=== PATIENT | female | born 2000 | race Caucasian/White ===

== ENCOUNTER 2021-08-17 13:02 | Emergency (ER) | payer OTHER, SELFPAY ==
[2021-08-17 13:02] VITALS: BP 161/95; PULSE 88; RESP 16; TEMP 36.8; O2SAT 99; BMI 25.4
--- NOTE | 2021-08-17 13:35 | RAD_ITS ---
STUDY: X-RAY CHEST REASON FOR EXAM: Female, 20 years old. CHEST PAIN cp TECHNIQUE: XR Chest 1 View COMPARISON: None FINDINGS: There is no demonstrated pleural abnormality. Normal size heart. Normal mediastinum and usama. Normal visualized pulmonary arteries. Normal visualized aortic arch and descending thoracic aorta. Normal visualized thoracic spine. Normal visualized ribs, clavicles, and shoulders. There is no demonstrated abnormality of the visualized soft tissue structures of the upper abdomen. RAD/Chest 1 View (Portable) IMPRESSION: There are no acute findings. Electronically Signed: Gonsalo Gates MD at 14:13 EST ,
--- NOTE | 2021-08-17 13:35 | EKG12_ITS ---
Test Reason : CP Blood Pressure : / mmHG Vent. Rate : 084 BPM Atrial Rate : 084 BPM P-R Int : 158 ms QRS Dur : 102 ms QT Int : 356 ms P-R-T Axes : 029 063 005 degrees QTc Int : 420 ms Normal sinus rhythm Nonspecific T wave abnormality Abnormal ECG No previous ECGs available Confirmed by BHARTI REYNOLDS, CARMEN ([id number]), editor in chief newspaper JARET JOSEPH ([id number]) on 08/22/2021 1:15:42 PM Referred By: JORDAN Confirmed By:CARMEN HAY MD
[2021-08-17 13:39] VITALS: BP 149/74; PULSE 86; RESP 13
--- NOTE | 2021-08-17 13:48 | ED.VIS.CHEST ---
HPI History of Present Illness Chief Complaint: Chest Pain Informant: patient Onset/Context/Timing Onset: Today, Yesterday and Hours Timing: Continuous Quality: Positive for Aching and Dull Location: Left Parasternal and Left Chest Current Severity: Mild Maximum Severity: Mild Worsened By: Movement of Arm and Movement of Torso; Not Worsened By Exertion, Breathing and Coughing Relieved By: Remaining Still Associated Symptoms: Negative for Nausea, Vomiting, Diaphoresis, Dyspnea, Cough, Fever, Lightheadedness, Acid Reflux and Palpitations Narrative Narrative: 20-year-old female no severe past medical or surgical history. Complaining of left-sided chest discomfort. States it started on left shoulder and moved to her left chest. This began last night has been constant. Worse with movement. She has no history of cardiac disease. No history of DVT or PE. No risk factors for DVT or PE she was on control but stopped that about 3 weeks ago. Denies any leg swelling. She runs track and has not had exertional chest pain or dyspnea out of the ordinary. She has no history of pneumothorax or chest trauma. Prior Similar Symptoms: Yes Recent Illness/Hospitalization: No CVD Risk Factors: Negative for Hypertension, Diabetes, Hypercholesterolemia, Family History 1' </=55 and Smoking PE Risk Factors: Negative for Recent Travel/Surgery, Recent Immobilization, Prior DVT or PE, Cancer and OCP + Smoking + >/=35 TAD Risk Factors: Negative for Marfan's Syndrome PFSH PFSH Allergy/AdvReac Type Severity Reaction Status Date / Time No Known Allergies Allergy Verified 08/17/21 13:04 Surgical History no surgical history no surgical history Social History Smoking Status: Never smoker ROS ROS ED ROS Narrative Left chest pain. Review of Systems ROS Unobtainable: Denies due to encephalopathy Constitutional Constitutional ED: Denies fever(s) or subjective Eyes Eyes: Denies none ENT ENT ED: Denies ear pain Cardiovascular Cardiovascular: Reports as per HPI and chest pain; Denies palpitations or racing heartbeat Respiratory/Chest Respiratory/Chest: Denies cough or dyspnea Gastrointestinal Gastrointestinal: Denies abdominal pain Genitourinary Genitourinary ED: Denies dysuria Musculoskeletal Musculoskeletal: Denies myalgias Integumentary Denies rash Neurologic Neurologic: Denies headache(s) Psychiatric Psychiatric: Denies depression Endocrine Endocrinology: Denies polyuria Hematologic/Lymphatic Hematologic/Lymphatic: Denies easy bruising Allergic/Immunologic Allergic/Immunologic ED: Denies urticaria EXAM Physical Exam Narrative Exam Narrative: 20-year-old female no acute distress vital signs stable afebrile. Pulse ox 9 9% on room air no signs of hypoxia. H EENT exam normal. Neck nontender. No JVD. No lymphadenopathy. Lungs clear to auscultation bilaterally. Heart regular rate and rhythm rate about 85 no murmur. Chest wall reproducibly tender along the left sternum and left chest. No ecchymosis or bruising. No subcu air crepitus. No redness or warmth. Right chest nontender. Back nontender. Moving all 4 extremities. Equal symmetrical radial pulses. 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 Dorsi plantarflexion intact. Calves nontender without edema. No cords. Neurologically awake and alert. Reproducible left chest wall pain. Also exacerbation of pain with rotation of the trunk or pushing against my arms. Const Vital Signs: 08/17/21 13:02 08/17/21 13:36 08/17/21 13:39 Temperature 98.2 F Temperature Source Temporal Pulse Rate 88 86 Respiratory Rate 16 13 Respiratory Effort Normal Blood Pressure 161/95 H 149/74 H Blood Pressure Mean 117 99 Pulse Ox 99 Oxygen Delivery Method Room Air Positive well nourished and well developed; Negative for obese, cachectic, contractures or unkempt General Appearance ED: well developed and NAD; Negative for unkempt, cachectic, contractures or pallor Nutritional Appearance: Negative for cachectic or obese HEENT Reports moist mucous membranes normocephalic and atraumatic; Negative for trauma or tenderness Eyes PERRL and EOMs intact bilaterally Neck no lymphadenopathy, supple and no JVD General: Negative for tenderness Chest Wall inspection of chest normal; Negative for palpation of chest normal Chest: tenderness Resp normal respiratory effort and clear to auscultation bilaterally Effort and Inspection: respiratory distress Auscultation: Negative for rales, rhonchi or wheezes Cardio regular rate, regular rhythm, S1 normal heart sound, S2 normal heart sound and no murmurs Rate: Negative for tachycardic Peripheral Pulses: pulses 2+ throughout GI normal to inspection, nondistended, normoactive bowel sounds, soft to palpation, non-tender, non-distended and no masses Back/Spine no CVA tenderness and no thoracic nor lumbar tenderness General Back: Negative for CVA tenderness Cervical Spine: Negative for cervical spine tenderness Extremity normal to inspection General Extremety ED: Negative for edema, pulses abnormal or tenderness General Extremity: Negative for edema or pulses abnormal Neuro oriented x3 Sensorium / Orientation: awake, alert, oriented to person, oriented to place and oriented to time Motor Exam: strength 5/5 throughout Psych mental status grossly normal Appearance: Negative for unkempt Attitude: No agitated Mood & Affect: Negative for depressed or tearful Skin no rashes or lesions noted and no wounds General Skin Exam: Negative for jaundice or pallor Heart Score History: Slightly/Non-Suspicious ECG: Normal Age: </= 45 years Risk Factors: No Risk Factors Troponin: </= Normal Limit Score: 0 MDM MDM MDM Narrative Medical decision making narrative: Healthy 20-year-old female with reproducible chest wall pain that is consistent with costochondritis. Chest x-ray and EKG being obtained. X-rays are unremarkable she will be discharged home ice to the area. Motrin for pain. Repeat exam patient is doing well at 2:14 PM will be discharged home. Radiography Chest X-Ray - ED: 1 View, Read by ED Physician, Heart, Lungs, Mediastinum, Bony Structures and No Acute Disease Diagnostic Testing: Chest x-ray, portable, single view interpreted myself shows no acute abnormality. Normal cardiac silhouette mediastinum. Normal infiltrates. No pneumothorax. No bony abnormalities. Rhythm Strip Rhythm Strip: Sinus Rhythm Rate: 84 Ectopy: None EKG Initial EKG: Attestation: I personally reviewed and interpreted this EKG as follows: Interpretation: Sinus Rhythm and No Acute Injury Pattern Comments: Normal sinus rhythm rate of 84 no acute signs of PA nor ischemia. No S1 every 3 T3. Discharge Plan Triage Chief Complaint: Chest Pain ED Provider: Lexx Johnston Dx/Rx/DC Orders Clinical Impression: Acute chest wall pain, Costochondritis Instructions: Costochondritis Primary Care Provider: Care Physician,No Primary Referrals: David Nava MD [STAFF PHYSICIAN] - 1 Week if not improving Care Physician,No Primary [Primary Care Provider] - Activity Restrictions/Additional Instructions: This is chest wall pain due to inflammation of your chest. Cool compresses or ice to your chest wall. Motrin for pain and inflammation. This should progressively improve. If not follow-up for further evaluation. Your EKG and chest x-ray today were normal. Disposition Disposition: Home, Self Care
[2021-08-17 14:20] VITALS: BP 139/63; PULSE 63
== END 2021-08-17 14:20 | disposition home or self-care (01) ==
PROVIDERS: Emergency Provider Emergency Medicine; Visit Provider Emergency Medicine
DX: R07.89 Other chest pain (principal); M94.0 Chondrocostal junction syndrome [Tietze]
CPT/HCPCS: 71045; 93005; 99282